=== PATIENT | female | born 1970 | race Caucasian/White ===

== ENCOUNTER 2021-10-22 09:12 | Outpatient (CLI) | payer OTHER | END 2021-10-22 09:13 | disposition home or self-care (01) | LOC: CSHCT 09:12 | PROVIDERS: ATTEND Family Medicine | DX: R59.9 Enlarged lymph nodes, unspecified (principal); Z80.7 Family history of other malignant neoplasms of lymphoid, hematopoietic and related tissues; D73.9 Disease of spleen, unspecified | CPT/HCPCS: 74177 ==

== ENCOUNTER 2021-10-29 08:34 | Outpatient (CLI) | payer OTHER | END 2021-10-29 08:35 | disposition home or self-care (01) | LOC: CSHMAMMO 08:34 | PROVIDERS: ATTEND Family Medicine | DX: Z12.31 Encounter for screening mammogram for malignant neoplasm of breast (principal); Z80.3 Family history of malignant neoplasm of breast; Z91.89 Other specified personal risk factors, not elsewhere classified | CPT/HCPCS: 77063; 77067 ==